=== PATIENT | female | born 1960 | race Caucasian/White ===

== ENCOUNTER → 2020-08-18 | Outpatient (CLI) | payer BC | END | disposition home or self-care (01) | LOC: LABWHC1 13:55 | PROVIDERS: ATTEND Nurse Practitioner | DX: Z03.89 Encounter for observation for other suspected diseases and conditions ruled out (principal) | CPT/HCPCS: U0003; C9803 ==

== ENCOUNTER → 2022-09-26 | Outpatient (CLI) | payer BC ==
--- NOTE | 2022-09-26 18:34 | BD ---
EXAMINATION TYPE: Axial Bone Density DATE OF EXAM: 09/26/2022 COMPARISON: NONE CLINICAL HISTORY: 62 years year old Female. ICD-10 CODE: Z78.0 MENOPAUSAL STATE Height: 63 Weight: 208.4 FRAX RISK QUESTIONS: Alcohol (3 or more units per day): NO Family History (Parent hip fracture): NO Glucocorticoids (More than 3mos): NO History of Fracture in Adulthood: NO Secondary Osteoporosis: 1. Type 1 Diabetes: NO 2. Hyperthyroidism: NO 3. Menopause before 45: NO 4. Malnutrition: NO 5. Chronic liver disease: NO Rheumatoid Arthritis: NO Current Tobacco Use: NO RISK FACTORS HISTORY OF: Hip Fracture (Right/Left): NO Spine Fracture: NO History of Wrist Fracture: LT When: A CHILD Surgery to Spine/Hip(right/left)/Wrist (right/left): NO Family History of Osteoporosis: NO Active: YES Diet low in dairy products/other sources of calcium: YES Postmenopausal woman: YES Take estrogen and/or progesterone medications: NO Lost more than 2 inches in height since high school: NO Frequent falls: NO Poor Health: NO Hyperparathyroidism: NO Adrenal Insufficiency: NO MEDICATIONS: Prednisone or other steroids: NO Thyroid Medications:NO Osteoporosis Medications:NO Additional Medications: B12, MULTI VIT. EXAM MEASUREMENTS: Bone mineral densitometry was performed using the FlyClip System. Bone mineral density as measured about the Lumbar spine is: ----- L1-L4(G/cm2): 1.100 T Score Values are as follows: ----- L1: -1.6 ----- L2: -0.7 ----- L3: -0.6 ----- L4: -0.1 ----- L1-L4: -0.7 BASELINE STUDY Bone mineral density about the R hip (g/cm2): 0.758 Bone mineral density about the L hip (g/cm2): 0.780 T Score values are as follows: -----R Neck: -2.0 -----L Neck: -1.9 -----R Total: -1.6 -----L Total: -1.2 BASELINE STUDY FRAX%s: The graph provided illustrates a 9.6% chance for a major osteoporotic fx and a 1.3% chance fo r the hips probability for fx in 10 years time. IMPRESSION: Osteopenia (T Score between -2.5 and -1). There is slightly increased risk of fracture and the patient may be considered for treatment. Re-Screen 2-5 years. NOTE: T-SCORE=SD OF THE YOUNG ADULT MEAN.
--- NOTE | 2022-09-27 09:31 | MM ---
Reason for Exam: Screening (asymptomatic). Last mammogram was performed 10 year(s) and 2 month(s) ago. Patient History: Menarche at age 10. First Full-Term at age 20. Postmenopausal. Risk Values: Pretty 5 year model risk: 1.5%. NCI Lifetime model risk: 6.6%. Prior Study Comparison: 07/12/2011 Bilateral Screening Mammogram, [facility]. 07/22/2011 Right Diagnostic Mammogram, [facility]. 07/17/2012 Bilateral Diagnostic Mammogram, [facility]. Tissue Density: The breast tissue is heterogeneously dense. This may lower the sensitivity of mammography. Findings: Analyzed By CAD. A few benign-appearing round calcifications are present bilaterally. There are 2 focal asymmetries in the anterior left breast medial aspect measuring near 8 mm and appear more prominent from prior old studies. A 5 mm round focal asymmetry similar location anterior inner right breast also noted. Overall Assessment: Incomplete: need additional imaging evaluation, BI-RAD 0 Management: Special View Mammogram of both breasts. Return for additional spot views and true lateral views right breast. Need to further investigate by ultrasound should be based on additional views. Electronically signed and approved by: Neal Stewart M.D.
== END | disposition home or self-care (01) ==
LOC: RADMAMWWP 14:16
PROVIDERS: ATTEND Family Medicine
DX: Z12.39 Encounter for other screening for malignant neoplasm of breast (principal); Z78.0 Asymptomatic menopausal state; M85.89 Other specified disorders of bone density and structure, multiple sites
CPT/HCPCS: 77067; 77080

== ENCOUNTER → 2022-10-02 | Outpatient (CLI) | payer BC ==
--- NOTE | 2022-10-02 15:20 | MM ---
Reason for Exam: Additional evaluation requested from abnormal screening. Last screening mammogram was performed less than 1 month ago. Patient History: Menarche at age 10. First Full-Term at age 20. Postmenopausal. Risk Values: Pretty 5 year model risk: 1.5%. NCI Lifetime model risk: 6.6%. Prior Study Comparison: 07/22/2011 Right Diagnostic Mammogram, [facility]. 07/17/2012 Bilateral Diagnostic Mammogram, [facility]. 09/26/2022 Bilateral MG screening mammo w CAD, [facility]. Tissue Density: The breast tissue is heterogeneously dense. This may lower the sensitivity of mammography. Findings: Analyzed By CAD. No suspicious masses, calcifications or distortions in the right breast. Area of concern compresses out. Focal asymmetry in the left breast at the anterior depth approximately 2.4 cm from the nipple in the medial lower quadrant. Overall Assessment: Incomplete: need additional imaging evaluation, BI-RAD 0 Management: Diagnostic Breast Ultrasound of the left breast. A clinical breast exam by your physician is recommended on an annual basis and results should be correlated with mammographic findings. This exam should not preclude additional follow-up of suspicious palpable abnormalities. Results were given to the patient verbally at the time of exam. Electronically signed and approved by: Ramo Acosta DO
--- NOTE | 2022-10-02 15:44 | USB ---
Reason for Exam: Additional evaluation requested from abnormal screening. Patient History: Menarche at age 10. First Full-Term at age 20. Postmenopausal. Risk Values: Pretty 5 year model risk: 1.5%. NCI Lifetime model risk: 6.6%. Prior Study Comparison: 07/22/2011 Right Diagnostic Mammogram, [facility]. 07/17/2012 Bilateral Diagnostic Mammogram, [facility]. 09/26/2022 Bilateral MG screening mammo w CAD, [facility]. Findings: The lower inner quadrant of the left breast and the retroareolar of the left breast were scanned. There is a 0.9 x 0.7 x 0.7 cm hypoechoic area with good through transmission. This has an echogenic nodule within which may have posterior shadowing. This is at the 6:00 position and appears to correlate with the mammographic findings. Additional smaller cysts are present. Overall Assessment: Probably benign, BI-RAD 3 Management: Diagnostic Mammogram of the left breast in 6 months. Diagnostic Breast Ultrasound of the left breast in 6 months. A clinical breast exam by your physician is recommended on an annual basis and results should be correlated with mammographic findings. This exam should not preclude additional follow-up of suspicious palpable abnormalities. Results were given to the patient verbally at the time of exam. Electronically signed and approved by: Arsenio Meneses D.O. Radiologis
== END | disposition home or self-care (01) ==
LOC: RADMAMWWP 14:54
PROVIDERS: ATTEND Family Medicine
DX: R92.8 Other abnormal and inconclusive findings on diagnostic imaging of breast (principal); Z78.0 Asymptomatic menopausal state
CPT/HCPCS: 77066

== ENCOUNTER 2024-07-17 16:31 | Emergency (ER) | payer BC, MEDICARE ==
--- NOTE | 2024-07-17 17:08 | ED ---
General Adult HPI - General Chief complaint: Extremity Injury, Upper Stated complaint: fall, R shoulder injury Time Seen by Provider: 07/17/24 16:42 Source: patient, family, RN notes reviewed Mode of arrival: wheelchair Limitations: no limitations - History of Present Illness Initial comments: Patient is a pleasant 64-year-old female present to the emergency department with concern for shoulder injury. Incident occurred prior to arrival. Patient was walking when she tripped and fell. Patient fell backwards and landed on her shoulder. Patient is concerned she does have a dislocated shoulder as she has had this once previously. No other area of injury or concern. No head injury or loss of consciousness. No neck or back pain. Discomfort is somewhat severe and greatly increases with movement. - Related Data Home Medications Medication Instructions Recorded Confirmed Cetirizine HCl [Zyrtec] 10 mg PO HS 07/14/14 07/15/14 Allergies Allergy/AdvReac Type Severity Reaction Status Date / Time latex Allergy Swelling Verified 07/14/14 08:09 peanut Allergy Anaphylaxis Verified 07/14/14 08:09 Review of Systems ROS Statement: Those systems with pertinent positive or pertinent negative responses have been documented in the HPI. ROS Other: All systems not noted in ROS Statement are negative. Constitutional: Denies: fever Eyes: Denies: eye pain ENT: Denies: ear pain Respiratory: Denies: cough, dyspnea Cardiovascular: Denies: chest pain Endocrine: Denies: fatigue Gastrointestinal: Denies: abdominal pain Musculoskeletal: Reports: as per HPI. Denies: back pain Past Medical History Additional Past Medical History / Comment(s): SEASONAL ALLERGIES History of Any Multi-Drug Resistant Organisms: None Reported Additional Past Surgical History / Comment(s): COLONOSCOPY Past Anesthesia/Blood Transfusion Reactions: No Reported Reaction Past Psychological History: No Psychological Hx Reported Past Alcohol Use History: None Reported Past Drug Use History: None Reported - Past Family History Father Family Medical History: Cancer Additional Family Medical History / Comment(s): PANCREATIC General Exam Limitations: no limitations General appearance: alert, in no apparent distress Head exam: Present: normocephalic Eye exam: Present: normal appearance Neck exam: Present: normal inspection. Absent: tenderness Respiratory exam: Present: normal lung sounds bilaterally Cardiovascular Exam: Present: regular rate, normal rhythm Expanded Peripheral pulses: 2+: Radial (R) GI/Abdominal exam: Present: soft. Absent: tenderness Extremities exam: Present: tenderness (Mild tenderness right shoulder. Limited range of motion secondarily to patient discomfort. Distally the extremity is neurovascular intact.) Back exam: Present: normal inspection Neurological exam: Present: alert. Absent: motor sensory deficit Psychiatric exam: Present: normal affect, normal mood Skin exam: Present: normal color Course Vital Signs 07/17/24 07/17/24 07/17/24 16:38 17:50 17:57 Temperature 97.3 F L Pulse Rate 72 73 64 Respiratory 20 18 18 Rate Blood Pressure 126/66 128/65 128/58 O2 Sat by Pulse 98 100 98 Oximetry Procedures - Orthopedic Joint Reduction Joint #1 Consent Obtained: verbal consent, written consent Side: right Joint Reduction Location: shoulder Analgesia: procedural sedation Shoulder Technique Used (if applicable): traction/counter-traction Post Reduction X-Ray Obtained: Yes Post Reduction X-Ray Results: reduced Patient Tolerated Procedure: well, no complications - Procedural Sedation *Procedural Sedation Start Time: 17:52 *Procedural Sedation Stop Time: 18:14 *Risks,benefits, and alternative therapies discussed?: Yes *Patient indicates understanding of risk/benefit discussion?: Yes *Indications: fracture/dislocation reduction *Previous Adverse Reaction to Anesthesia/Sedation?: No * Testing Complete?: No Reason Test Not Complete:: Age > 60 *ASA Class: I *Mallampati Airway Score: 3 *Time of Last PO Intake: 02:00 Preparation: monitoring manager applied, pulse oximeter, capnometry used, supplemental O2 applied IV Propofol Dose (mgs): 100 Complications: none Patient Tolerated Procedure: well, no complications Medical Decision Making - Medical Decision Making Was pt. sent in by a medical professional or institution (Dr. PA, DENTAL INTERN, urgent care, hospital, or alf...) When possible be specific @ -No Did you speak to anyone other than the patient for history (EMS, parent, family, police, friend...)? What history was obtained from this source @ - is present and helps confirm history of previous shoulder dislocation Did you review nursing and triage notes (agree or disagree)? Why? @ -I reviewed and agree with nursing and triage notes Were old charts reviewed (outside hosp., previous admission, EMS record, old EKG, old radiological studies, urgent care reports/EKG's, alf records)? Report findings @ -No old charts were reviewed Differential Diagnosis (chest pain, altered mental status, abdominal pain women, abdominal pain men, vaginal bleeding, weakness, fever, dyspnea, syncope, headache, dizziness, GI bleed, back pain, seizure, CVA, palpatations, mental health, musculoskeletal)? @ -Differential Musculoskeletal Muscular strain, contusion, ligament sprain, fracture, arthritis, septic arthritis, bursitis, cellulitis, muscle spasm, nerve compression, DVT, arterial occlusion, herpes zoster, electrolyte abnormality, tumor.... This is not meant to be in all inclusive list EKG interpreted by me (3pts min.). @ -As above X-rays interpreted by me (1pt min.). @ -X-ray right shoulder shows dislocation. Postreduction x-ray shows appropriate location CT interpreted by me (1pt min.). @ -None done U/S interpreted by me (1pt. min.). @ -None done What testing was considered but not performed or refused? (CT, X-rays, U/S, labs)? Why? @ -None What meds were considered but not given or refused? Why? @ -None Did you discuss the management of the patient with other professionals (professionals i.e. , PA, DENTAL INTERN, lab, RT, psych nurse, dialysis social worker, remote control mirror installer, teacher, certified juvenile probation officer, case technician)? Give summary @ -No Was smoking cessation discussed for >3mins.? @ -No Was critical care preformed (if so, how long)? @ -No Were there social determinants of health that impacted care today? How? (Homelessness, low income, unemployed, alcoholism, drug addiction, transportation, low edu. Level, literacy, decrease access to med. care, [facility], rehab)? @ -No Was there de-escalation of care discussed even if they declined (Discuss DNR or withdrawal of care, Hospice)? DNR status @ -No What co-morbidities impacted this encounter? (DM, HTN, Smoking, COPD, CAD, Cancer, CVA, ARF, Chemo, Hep., AIDS, mental health diagnosis, sleep apnea, morbid obesity)? @ -Previous shoulder dislocation Was patient admitted / discharged? Hospital course, mention meds given and route, prescriptions, significant lab abnormalities, going to OR and other pertinent info. @ -Patient presents with concerns for shoulder dislocation confirmed with x- ray. Patient sedated and shoulder is reduced. Patient reevaluated and updated. Patient is alert and appropriate. Patient will be discharged with follow-up. Undiagnosed new problem with uncertain prognosis? @ -No Drug Therapy requiring intensive monitoring for toxicity (Heparin, Nitro, Insulin, Cardizem)? @ -No Were any procedures done? @ -Conscious sedation, shoulder reduction Diagnosis/symptom? @ -A right shoulder dislocation Acute, or Chronic, or Acute on Chronic? @ -Acute Uncomplicated (without systemic symptoms) or Complicated (systemic symptoms)? @ -Default Side effects of treatment? @ -No Exacerbation, Progression, or Severe Exacerbation? @ -No Poses a threat to life or bodily function? How? (Chest pain, [place], [place], pneumonia, PE, COPD, DKA, ARF, appy, cholecystitis, CVA, Diverticulitis, Homicidal, Suicidal, threat to staff... and all critical care pts) @ -Threat to arm and shoulder function Disposition Clinical Impression: Dislocation, shoulder Disposition: HOME SELF-CARE Condition: Stable Instructions (If sedation given, give patient instructions): Shoulder Dislocation (ED), Moderate Sedation (ED) Additional Instructions: Please follow-up with orthopedics next week, number provided. Please also follow-up with your primary care physician. Use sling. [id number] Tylenol or Motrin as needed. Return for increased pain, arm problems, worsening or changing symptoms or other concerns Is patient prescribed a controlled substance at d/c from ED?: No Referrals: Juan Tapia MD [Primary Care Provider] - 1-2 days Isaac Antonio MD [STAFF PHYSICIAN] - 1-2 days Time of Disposition: 18:16
[2024-07-17] MEDS: HYDROmorphone 1 MG/ML 1 ML SYRINGE IVP STA (17:16)
--- NOTE | 2024-07-17 17:44 | XR ---
EXAMINATION TYPE: XR shoulder complete RT DATE OF EXAM: 07/17/2024 COMPARISON: None HISTORY: Fall, pain TECHNIQUE: 3 view right shoulder FINDINGS: Anterior-inferior dislocation of the humeral head from the glenoid is evident. A Hill-Sachs deformity of the superior humeral head may be present. Acute fractures not otherwise apparent. Acromioclavicular junction appears normal. IMPRESSION: 1. Dislocation of the humeral head from the glenoid. [facility], Workstation: [facility], 07/17/2024 5:41 PM
[2024-07-17] MEDS: PROPOFOL 10 MG/ML 20 ML VIAL IV ONE (17:56)
--- NOTE | 2024-07-17 18:17 | XR ---
EXAMINATION TYPE: XR shoulder limited RT DATE OF EXAM: 07/17/2024 COMPARISON: Shoulder exam 07/17/2024 HISTORY: Post reduction TECHNIQUE: AP right shoulder FINDINGS: Humeral head articulates with the glenoid. The suspected Hill-Sachs deformity appears rain r visualized than suspected to be acute. Tiny calcification is near the insertion of the supraspinatu s tendon. Small avulsion could be considered. Acromiohumeral joint spaces preserved. No new fractures are identified. IMPRESSION: 1. Reduction of previous humeral head dislocation. 2. Hill-Sachs deformity. 3. Avulsion of the supraspinatus tendon not excluded, follow-up MRI can be performed as clinically in dicated [facility], Workstation: [facility], 07/17/2024 6:14 PM
[2024-07-17 18:58] VITALS: BP 126/62; PULSE 78; RESP 20; TEMP 97.6
== END 2024-07-17 18:50 | disposition home or self-care (01) ==
LOC: EC 16:31
CPT/HCPCS: 23650; 96374; 99283